=== PATIENT | female | born 1960 | race Caucasian/White ===

== ENCOUNTER 2018-04-04 14:14 | Emergency (ER) | payer OTHER ==
[~2018-04-04] VITALS: Ht 157.5 cm; Wt 78.0 kg
[~2018-04-04 14:14] MED LIST: ALTACE5 MG PO; CEFTIN250 MG PO; INTESTINEX680 MG PO; RAMIPRIL5 MG PO; ZANTAC150 M3 PO; ZITHROMAX500 MG PO
== END 2018-04-05 03:08 ==
LOC: ER 14:14
DX: R07.89 Other chest pain (principal)